=== PATIENT | female | born 1990 | race Two or more races ===

== ENCOUNTER 2023-09-04 19:21 | Emergency (ER) | payer MEDICAID, OTHER ==
[~2023-09-04] VITALS: Ht 162.6 cm; Wt 72.0 kg
[2023-09-04] MEDS ORDERED: METOCLOPRAMIDE HCL 5MG/ml INJ 2ml VIAL IV ONE (21:00)
[2023-09-04] MEDS ORDERED: PYRIDOXINE HCL 50 MG TAB PO ONE (21:00)
[2023-09-04] MEDS ORDERED: SODIUM CHLORIDE 0.9% 1,000 ML IV ONE (21:00)
[2023-09-04 21:14] VITALS: BP 115/73; TEMP 98.9
[2023-09-04 21:15] VITALS: PULSE 82; RESP 16; O2SAT 95
[2023-09-04 21:46] LABS: Basophils # (auto) 0.1 10 ^3/uL (0-0.2); Basophils % (auto) 0.4 % (0.0-2.0); Eosinophils # (auto) 0 10 ^3/uL (0-0.8); Eosinophils % (auto) 0.2 % (0.0-7.0); Hematocrit 42.5 % (36.0-46.0); Hemoglobin 14.4 g/dL (12.2-16.2); Lymphocytes # (auto) 1.7 10 ^3/uL (0.4-5.4); Mean Corpuscular Hemoglobin 31.5 pg (28.0-32.0); Mean Corpuscular Hgb Conc. 33.9 g/dL (32.0-36.0); Mean Corpuscular Volume 92.9 fL (80.0-100.0); Monocytes # (auto) 0.5 10 ^3/uL (0-1.3); Neutrophils # (auto) 12.8 10 ^3/uL (1.6-8.6); Neutrophils % (auto) 85.4 % (37.0-80.0); Red Blood Cells 4.58 10^6/uL (4.0-5.20); Red Cell Distribution Width 12.2 % (11.8-14.3)
[2023-09-04 21:52] LABS: Chloride 104 mmol/L (98-107); Potassium 3.7 mmol/L (3.5-5.1); Sodium 136 mmol/L (136-145)
[2023-09-04 21:53] LABS: Anion Gap 12 (5-15); Carbon Dioxide 20 mmol/L (20-30)
[2023-09-04 21:54] LABS: Calcium 9.4 mg/dL (8.5-10.1)
[2023-09-04 21:58] LABS: BUN/Creatinine Ratio 8.8 (10.0-20.0); Blood Urea Nitrogen 5 mg/dL (9-23); Glucose 103 mg/dL (74-106)
[2023-09-04] MEDS ORDERED: diphenhdrAMINE HCL 50 MG/1 ML VL IV ONE (22:00)
[2023-09-04] MEDS ORDERED: ONDANSETRON HCL 4 MG/2 ML VIAL IV ONE (23:00)
[2023-09-04 23:54] LABS: Urine Bacteria FEW /hpf (None Seen); Urine Blood Negative /uL (Negative); Urine Clarity Clear (Clear); Urine Color Yellow (Yellow); Urine Hyaline Cast FEW /lpf (0 - 2); Urine Mucus FEW (None Seen); Urine Protein, UAD TRACE (Negative); Urine Specific Gravity 1.023 (1.001-1.035); Urine Urobilinogen Normal (Negative); Urine WBC 5 /hpf (0 - 5)
== END 2023-09-04 23:17 | disposition home or self-care (01) ==
LOC: EDBD 19:21 → ER 19:21
DX: O21.0 Mild hyperemesis gravidarum (principal); R10.2 Pelvic and perineal pain; Z3A.09 9 weeks gestation of pregnancy
CPT/HCPCS: 36415; 80048; 81001; 84702; 85025; 96361; 96374; 96375; 99284; J2405; J2765; J7030